=== PATIENT | female | born 1975 | race American Indian/Alaskan Native ===

== ENCOUNTER 2020-12-10 13:26 | Emergency (ER) | payer SELFPAY ==
--- NOTE | 2020-12-10 13:35 | Event Note ---
ED Screening Note ED Screening Note: numerous vague complaints dizzy x 1 week- vertigo med not working chest pain- left side dull pain left side blurred vision/numb fingers back pain chills no fever no sob denies trauma; works at [employer] denies cig/etoh/drugs pcp- denies having one pmh vertigo covid (also immunized) post menopausal PSH denies Rx vertigo med PRN Mom hx cad Dad dec ? cause This initial assessment/diagnostic orders/clinical plan/treatment(s) is/are subject to change based on patients health status, clinical progression and re- assessment by fellow clinical providers in the ED. Further treatment and workup at subsequent clinical providers discretion. Patient/guardian urged not to elope from the ED as their condition may be serious if not clinically assessed and managed. Initial orders include: ro acs/vertigo/arrhythmia/electrolyte abnormality/infectious cause
[2020-12-10 13:41] VITALS: BP 151/85
[2020-12-10 14:26] LABS: Basophils % (Auto) 0.7 % (0.0-1.8); Eosinophils # (Auto) 0.1 K/mm3 (0.0-0.4); Eosinophils % (Auto) 1.7 % (0.0-4.3); Hematocrit 38.5 % (30.3-42.9); Hemoglobin 12.3 gm/dl (10.1-14.3); Lymphocytes # (Auto) 2.8 K/mm3 (1.2-5.4); Lymphocytes % (Auto) 50.4 % (13.4-35.0); Mean Corpuscular HGB Conc 32 % (30-34); Mean Corpuscular Volume 84 fl (79-97); Monocytes # (Auto) 0.3 K/mm3 (0.0-0.8); Monocytes % (Auto) 4.9 % (0.0-7.3); Platelet Count 296 K/mm3 (140-440); Red Blood Count 4.58 M/mm3 (3.65-5.03)
[2020-12-10 14:34] LABS: Bilirubin,Urine NEG (Negative); Blood,Urine SM (Negative); Color,Urine Yellow (Yellow); Mucus,Urine FEW /HPF; Protein,Urine <15 mg/dL mg/dL (Negative); Urobilinogen,Urine < 2.0 mg/dL (<2.0)
[2020-12-10 14:36] LABS: Alanine Aminotransferase 8 units/L (7-56); Albumin 4.4 g/dL (3.9-5); Blood Urea Nitrogen 9 mg/dL (7-17); Calcium 9.7 mg/dL (8.4-10.2); Hemolysis Index 6
[2020-12-10 14:37] LABS: HCG Qualitative,Urine Negative (Negative)
[2020-12-10 15:03] LABS: BUN/Creatinine Ratio 18
--- NOTE | 2020-12-10 15:03 | XRay Report ---
XR chest routine 2V INDICATION / CLINICAL INFORMATION: Chest Pain. COMPARISON: None available. FINDINGS: SUPPORT DEVICES: None. HEART /PULMONARY VASCULATURE: No significant abnormality. LUNGS / PLEURA: No significant pulmonary or pleural abnormality. No pneumothorax. ADDITIONAL FINDINGS: No significant additional findings. IMPRESSION: 1. No acute findings. Signer Name: Robin Magana MD Signed: 12/10/2020 2:59 PM Workstation Name: [id number]
--- NOTE | 2020-12-10 16:05 | Emergency Department Report ---
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 She says that over the last week she has felt extremely dizzy and her meclizine has not been working to control her vertigo symptoms like it normally does. She feels persistently dizzy but especially when she turns her head. In addition she has noticed new symptoms which she has never had before including an inability to comb her hair using her right upper extremity due to weakness. She has had numbness of her right upper and lower extremities over that same. Patient states that she feels her vision is slightly more blurry than normal. She has had a few mild headaches over the same period of time. She says that she has been experiencing intermittent episodes of non-radiating left-sided chest pain which comes on at random and lasts for a few minutes before resolving. She is unable to describe the character of the pain. She has approximately 3 of these episodes per day. She has also had associated diaphoresis but no associated shortness of breath, vomiting, jaw pain, or back pain. There are no known aggravating or alleviating factors and other than taking her prescribed meclizine she has not tried any oth er interventions. These symptoms became concerning to her so she decided to come in today for further evaluation. She denies any associated fever/chills, double vision, sore throat, congestion, right-sided ear pain, hearing loss, shortness of breath, cough, abdominal pain, vomiting, dysuria, or any other symptoms/complaints. ED Past Medical Hx - Past Medical History Previous Medical History?: Yes Additional medical history: Vertigo - Social History Smoking Status: Never Smoker Substance Use Type: None ED Review of Systems ROS: Stated complaint: DIZZINESS/CP/BLURRED VISION Other details as noted in HPI Constitutional: denies: chills, fever Eyes: vision change, other (No diplopia). denies: eye pain, eye discharge ENT: denies: ear pain, throat pain, dental pain, hearing loss Respiratory: denies: cough, shortness of breath Cardiovascular: chest pain. denies: palpitations, syncope Gastrointestinal: nausea. denies: abdominal pain, vomiting, diarrhea Genitourinary: denies: dysuria, frequency Musculoskeletal: denies: back pain, joint swelling Skin: denies: rash, lesions Neurological: headache, weakness, numbness, vertigo. denies: confusion, abnormal gait Psychiatric: denies: anxiety, depression Physical Exam - Physical Exam Vital Signs: Vital Signs 12/10/20 13:40 Temperature 98.2 F Pulse Rate 94 H Respiratory 19 Rate Blood Pressure 151/85 O2 Sat by Pulse 99 Oximetry Physical Exam: GENERAL: Well developed and well nourished. No acute distress HEAD: Normocephalic. No obvious signs of trauma. ENT: Moist mucous membranes. Left TM is within normal limits. The right TM is obscured from view by copious cerumen. No pain on palpation of the tragus. No mastoid tenderness. EYES: Extraocular movements are intact. Pupils are equal round and reactive to light bilaterally. Bilateral horizontal nystagmus. Patient appears to have intermittent right-sided ptosis. Visual acuity is grossly normal. NECK: Supple. Full ROM is intact. Trachea is midline. LUNGS: Nonlabored breathing. Equal chest rise bilaterally. Clear to auscultation bilaterally. CARDIOVASCULAR: Regular rate and rhythm. No murmurs or rubs. VASCULAR: Cap refill < 2 seconds ABDOMEN: Abdomen is soft and nondistended. There is no significant tenderness, guarding or rebound. SKIN: Skin is warm and dry NEURO: Patient is awake, alert, and oriented. currency counter II-XII grossly intact. Patient does appear to have intermittent right-sided ptosis which is subtle. The patient has decreased sensation to light touch throughout the right upper and lower extremities as well as the right side of the thorax which is approximately 20% reduced compared to the left side. No sensory loss to the face. Normal motor function in all 4 extremities. Normal [id number]-[id number]-[id number]. Normal eoos-gr-rvlv. Grossly normal gait. NIH stroke scale score of 1 MUSCULOSKELETAL: No obvious deformities. No significant tenderness. Normal ROM throughout. BACK/SPINE: No midline tenderness or step-offs of the C/T/L spine. No costovertebral angle tenderness. ED Course Vital Signs 12/10/20 13:40 Temperature 98.2 F Pulse Rate 94 H Respiratory 19 Rate Blood Pressure 151/85 O2 Sat by Pulse 99 Oximetry ED Medical Decision Making - Lab Data Result diagrams: 12/10/20 13:48 12/10/20 13:48 Lab Results 12/10/20 12/10/20 12/10/20 Range/Units 13:48 13:48 Unknown WBC 5.6 (4.5-11.0) K/mm3 RBC 4.58 (3.65-5.03) M/mm3 Hgb 12.3 (10.1-14.3) gm/dl Hct 38.5 (30.3-42.9) % MCV 84 (79-97) fl MCH 27 L (28-32) pg MCHC 32 (30-34) % RDW 14.0 (13.2-15.2) % Plt Count 296 (140-440) K/mm3 Lymph % (Auto) 50.4 H (13.4-35.0) % [place] % (Auto) 4.9 (0.0-7.3) % Eos % (Auto) 1.7 (0.0-4.3) % Baso % (Auto) 0.7 (0.0-1.8) % Lymph # (Auto) 2.8 (1.2-5.4) K/mm3 [place] # (Auto) 0.3 (0.0-0.8) K/mm3 Eos # (Auto) 0.1 (0.0-0.4) K/mm3 Baso # (Auto) 0.0 (0.0-0.1) K/mm3 Seg Neutrophils % 42.3 (40.0-70.0) % Seg Neutrophils # 2.4 (1.8-7.7) K/mm3 Sodium 139 (137-145) mmol/L Potassium 3.9 (3.6-5.0) mmol/L Chloride 100.0 (98-107) mmol/L Carbon Dioxide 28 (22-30) mmol/L Anion Gap 15 mmol/L BUN 9 (7-17) mg/dL Creatinine 0.5 L (0.6-1.2) mg/dL Estimated GFR > 60 ml/min BUN/Creatinine Ratio 18 % Glucose 131 H (65-100) mg/dL Calcium 9.7 (8.4-10.2) mg/dL Total Bilirubin 0.60 (0.1-1.2) mg/dL AST 13 (5-40) units/L ALT 8 (7-56) units/L Alkaline Phosphatase 105 (35-129) units/L Troponin T < 0.010 (0.00-0.029) ng/mL Total Protein 7.9 (6.3-8.2) g/dL Albumin 4.4 (3.9-5) g/dL Albumin/Globulin Ratio 1.3 % Urine Color Yellow (Yellow) Urine Turbidity Slightly-cloudy (Clear) Urine pH 5.0 (5.0-7.0) Ur Specific [place] 1.010 (1.003-1.030) Urine Protein <15 mg/dl (Negative) mg/dL Urine Glucose (UA) Neg (Negative) mg/dL Urine Ketones Neg (Negative) mg/dL Urine Blood Sm (Negative) Urine Nitrite Neg (Negative) Urine Bilirubin Neg (Negative) Urine Urobilinogen < 2.0 (<2.0) mg/dL Ur Leukocyte Esterase Neg (Negative) Urine WBC (Auto) 4.0 (0.0-6.0) /HPF Urine RBC (Auto) 2.0 (0.0-6.0) /HPF U Epithel Cells (Auto) 10.0 (0-13.0) /HPF Urine Mucus Few /HPF Urine HCG, Qual Negative (Negative) - EKG Data -: EKG Interpreted by In - EKG Data 12/11/20 15:02 Normal sinus rhythm. Normal axis. Normal intervals. No ectopy. No significant ST segment abnormalities. Nonspecific T wave inversions. 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 On initial assessment, patient is afebrile and with grossly normal vital signs with exception of mildly elevated blood pressure. Physical examination reveals int ermittent right-sided ptosis as well as decreased sensation to light touch throughout the right side of the body which spares the face. Cranial nerves are intact. Motor function is intact throughout. Normal qpydwq-opvw-vcvhrn and rllu-hy-ooxd. Normal gait. Grossly normal vision. NIH stroke scale score is 1. Given the sensory deficit discovered on exam which spares the face in conjunction with the patient's story in which she has intermittent weakness of her right upper extremity which prevents her from being able to comb her hair I am concerned for possible stroke. Nonetheless, given that the symptoms have been present for 1 week she does not meet criteria for stroke alert activation. We will nonetheless perform full stroke work-up and will also include CTA of the chest to assess for evidence of aortic dissection given her report of intermittent chest pain + neurologic symptoms (as well as less likely PE). We will obtain a teleneurology consult after we have the results of the patient's head CT/CTA of the chest. We will perform full chest pain work-up as well. She has no active chest pain. I spoke with the charge nurse and requested that the patient be placed in the next available monitored bed. Labs have resulted and reveal no significant leukocytosis or anemia. Creatinine is within normal range and there are no significant electrolyte abnormalities. Troponin is negative. EKG shows no ischemic changes. The patient's heart score is 1. Chest x-ray shows no acute findings. On repeat assessment, the patient's symptoms are unchanged and her neurologic exam is unchanged. Noncon head CT shows no acute abnormalities. CTA of the chest shows no evidence of aortic dissection or pulmonary embolism. Teleneurology consult was called. Aspirin has been ordered At 4:30 PM I spoke with Dr. Smith of teleneurology. She stated that on her virtual examination she did not appreciate any focal deficits. Nonetheless, given the patient's reported story of right upper extremity weakness as well as find of right-sided sensory loss sparing the face revealed on my physical examination which was performed in person, she shares my concern for a central cause of the patient's symptoms rather than benign cause such as her known pre- existing peripheral vertigo. She recommends MRI of the brain with and without contrast and says that if both studies are negative, then stroke would be ruled out. After speaking with the neurologist I again went back and reassessed the patient and perform full neurologic examination which revealed the same sensory deficits as before. I discussed with the patient my concern for possible stroke as well as the need for hospital admission for further work-up and management of this as well as her chest pain. The patient expressed understanding and agreement with this plan of care. At 5:15 PM I spoke with Dr. Martinez regarding the case. He accepts the patient and will assume care. Critical Care Time: Yes Critical care time in (mins) excluding proc time.: 40 Critical care attestation.: If time is entered above; I have spent that time in minutes in the direct care of this critically ill patient, excluding procedure time. Critical care time was spent in the evaluation/assessment, work-up, and management of chest pain with neurologic symptoms requiring advanced diagnostic studies including CTA of the chest and CT of the head as well as consultation and detailed discussion with specialist as well as frequent reevaluation and reassessment. ED Disposition Clinical Impression: Stroke, Chest pain, Vertigo Disposition: HOME / SELF CARE / HOMELESS Is pt being admited?: Yes Condition: Undetermined Referrals: PRIMARY CARE, [Primary Care Provider] - 3-5 Days
--- NOTE | 2020-12-10 16:30 | Emergency Department Report ---
Blank Doc - Documentation Documentation: [facility] Consult Note # Demographics Consult Type: General Neurology Patient Location: Emergency Room First Name: Cleopatra Last Name: Young Age: 45 Gender: Female Facility: [facility] Time of Initial Page ( Time): 12/10/2020, 16:05 Time of Return Call ( Time): 12/10/2020, 16:05 # HPI History: 45yo F with h/o vertigo (peripheral), for the last week having dizziness, not helped by her meclizine. having right sided numbness. also feeling incoordinated on her right. # Scores Time of exam and NIHSS ( Time): 12/10/2020, 16:27 Level of Consciousness 1a: [0] = Alert; keenly responsive LOC Questions 1b: [0] = Answers both questions correctly LOC Commands 1c: [0] = Performs both tasks correctly Best Gaze 2: [0] = Normal Visual 3: [0] = No visual loss Facial Palsy 4: [0] = Normal symmetrical movements Motor Arm Left 5a: [0] = No drift Motor Arm Right 5b: [0] = No drift Motor Leg Left 6a: [0] = No drift Motor Leg Right 6b: [0] = No drift Limb Ataxia 7: [0] = Absent Sensory 8: [0] = Normal Best Language 9: [0] = No aphasia Dysarthria 10: [0] = Normal Extinction and Inattention 11: [0] = No abnormality NIHSS Total: 0 # Assessment Impression: Vertigo # Plan Imaging: (urgency: routine): MRI Brain with AND without contrast Other: would not pursue stroke work-up if MRI is negative I have discussed my recommendations with the referring provider Additional Recommendations: Further work-up based on MRI results # [employer]istics Telemedicine: Interactive 2 way audio and visual telecommunication technology was utilized during this visit
--- NOTE | 2020-12-10 16:30 | Cat Scan Report ---
CT head without contrast INDICATION : Right-sided numbness, concern for stroke. TECHNIQUE: Axial imaging performed from the skull apex through the skull base without the use of con trast. All CT scans at this location are performed using CT dose reduction for ALARA by means of aut omated exposure control. COMPARISON: None FINDINGS: Parenchyma: No acute intracranial hemorrhage or parenchymal abnormality. Ventricles: Ventricles are normal in size and appear symmetric. Soft tissues: Soft tissues including the orbits appear normal. Bones: No acute osseous abnormality. Sinuses: Sinuses and mastoid air cells are clear. IMPRESSION: No CT evidence of acute intracranial abnormality. If neurologic symptoms persist or there is continue d concern for acute infarct, an MRI would be recommended. Signer Name: Dieter Matta MD Signed: 12/10/2020 4:26 PM Workstation Name: [id number]
--- NOTE | 2020-12-10 16:36 | Cat Scan Report ---
CTA CHEST WITH CONTRAST INDICATION / CLINICAL INFORMATION: Assess for aortic dissection vs PE OMNI 350 100ML . TECHNIQUE: Axial CT images were obtained through the chest after injection of IV contrast. 3 plane MN P and/or 3D reconstructions were produced. All CT scans at this location are performed using CT dose reduction for ALARA by means of automated exposure control. COMPARISON: None available. FINDINGS: PULMONARY ARTERIES: No pulmonary emboli. THORACIC AORTA: No significant abnormality. HEART: No significant abnormality. CORONARY ARTERY CALCIFICATION: None. MEDIASTINUM / REAGAN: No significant abnormality. PLEURA: No pleural effusion. No pneumothorax. LUNGS: No acute air space or interstitial disease. ADDITIONAL FINDINGS: None. UPPER ABDOMEN: No acute findings. SKELETAL STRUCTURES: No significant osseous abnormality. IMPRESSION: 1. No CT evidence for pulmonary embolism or thoracic aortic dissection. 2. No acute findings. Signer Name: Jonatan Hancock MD Signed: 12/10/2020 4:31 PM Workstation Name: [id number]
--- NOTE | 2020-12-10 19:30 | Event Note ---
Date: 12/10/20 45 YO Female with Obesity, BPV presents to ED for evaluation. Patient seen and evaluated in MSE. R 4. Patient reports dizziness. Patient symptoms consistent with benign positional vertigo. Patient counseled and educated regarding etiology of vertigo. Patient acknowledges understanding instructions. Patient reevaluated and found to have no neurologic deficit. Patient ambulating independently without dizziness. Patient medically optimized for discharge. Patient instructed to have outpatient follow-up. Patient counseled regarding vestibular rehab exercises. Patient educated regarding the etiology of her symptoms. Patient does not meet admission criteria. Pt departs ER. Patient seen and evaluated prior to discharge but no significant physical exam findings. No neurologic deficits. Pt instructed to F/U with Neurology as outpatient for further care. EXAM: GENERAL: Well developed and well nourished. Obese. NAD. HEAD: Normocephalic. No obvious signs of trauma. ENT: Dry mucous membranes. No hearing loss or tinnitus EYES: Extraocular movements are intact. Pupils are equal round and reactive to light bilaterally NECK: Supple. Full ROM is intact. Trachea is midline. LUNGS: Equal chest rise bilaterally. Clear to auscultation bilaterally. CARDIOVASCULAR: regular rate and rhythm. No murmurs or rubs. VASCULAR: Cap refill: normal ABDOMEN: soft, nontender, nondistended. There is no significant tenderness, guarding or rebound. SKIN: Skin is warm and dry. NEURO: manager sterile processing II-XII grossly intact. Normal speech. MUSCULOSKELETAL: No obvious deformities. No significant tenderness. Normal ROM throughout.
--- NOTE | 2020-12-16 14:13 | Electrocardiograph Report ---
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
== END 2020-12-10 19:30 | disposition home or self-care (01) ==
LOC: ED 13:26
DX: I63.9 Cerebral infarction, unspecified (principal); R07.9 Chest pain, unspecified
CPT/HCPCS: 36415; 70450; 71046; 71275; 80053; 81001; 81025; 84484; 85025; 93005; 99284; Q9967